=== PATIENT | male | born 1940 | race Caucasian/White ===

== ENCOUNTER 2020-12-09 12:22 | Outpatient (CLI) | payer OTHER | END 2020-12-09 12:23 | disposition home or self-care (01) | LOC: CSHULT 12:22 | PROVIDERS: ATTEND Orthopaedic Surgery | DX: I11.9 Hypertensive heart disease without heart failure (principal); Z95.0 Presence of cardiac pacemaker; I51.7 Cardiomegaly; I07.1 Rheumatic tricuspid insufficiency | CPT/HCPCS: 93306 ==

== ENCOUNTER 2024-07-06 08:16 | Emergency (ER) | payer MEDICARE, OTHER ==
[2024-07-06 09:44] LABS: #Basophils 0.02 10x3/uL (0.0-0.2); #Eosinophils 0.11 10x3/uL (0.0-0.5); #Neutrophils 4.55 10x3/uL (1.5-8.4); %Basophils 0.3 % (0.0-2.0); %Eosinophils 1.7 % (0.0-6.0); %Lymphocytes 16.6 % (18.0-47.0); %Monocytes 10.8 % (0.0-10.0); %Neutrophils 70.1 % (40.0-75.0); Hematocrit 36.3 % (38.8-50.0); Hemoglobin 11.5 g/dL (13.5-17.5); Mean Corpuscular HGB CONC 31.7 g/dL (32.0-36.0); Mean Corpuscular Hemoglobin 27.6 pg (27.0-33.0); Mean Corpuscular Volume 87.3 fL (81.2-95.1); Mean Platelet Volume 9.6 fL (7.4-10.4); Platelet Count 191 10x3/uL (150-450); Red Blood Cell (RBC) Count 4.16 10x6/uL (4.32-5.72); White Blood Cell (WBC) Count 6.5 10x3/uL (3.5-10.5)
[2024-07-06 09:55] LABS: INR-International Normal Ratio 1.2; PTT 33.1 sec (22.0-33.0)
[2024-07-06] MEDS ORDERED: Furosemide 40 MG (4 mL) VIAL ONE (09:57)
[2024-07-06] MEDS ORDERED: Ipratropium/Albuterol 3 ML NEB ONE (10:07)
[2024-07-06 10:17] LABS: Troponin I Less than 0.010 ng/mL (< 0.028)
[2024-07-06 10:21] LABS: ALT (SGPT) 12 U/L (8-55); AST (SGOT) 18 U/L (5-34); Albumin 3.8 g/dL (3.4-4.8); Alkaline Phosphatase 57 U/L (40-110); Anion Gap 16 mmol/L (10-20); BUN (Urea Nitrogen) 21 mg/dL (8.4-25.7); Bilirubin, Total 1.2 mg/dL (0.2-1.2); Calc. Creatinine Clearance 0 mL/min (70-130); Calcium 9.3 mg/dL (7.8-10.44); Carbon Dioxide 20 mmol/L (23-31); Chloride 106 mmol/L (98-107); Estimated GFR 61; Globulin 3.1 g/dL (2.4-3.5); Glucose 97 mg/dL (83-110); Lipase 5 U/L (8-78); Magnesium 1.8 mg/dL (1.6-2.6); Potassium 4.5 mmol/L (3.5-5.1); Protein, Total 6.9 g/dL (5.8-8.1); Sodium 137 mmol/L (136-145)
[2024-07-06] MEDS ORDERED: Iopamidol 370 76% 100 ML VIAL ONE (12:31)
== END 2024-07-06 14:06 | disposition short-term general hospital (02) ==
LOC: CSHERS 08:16
DX: I50.9 Heart failure, unspecified (principal); Z95.0 Presence of cardiac pacemaker; Z55.6 Problems related to health literacy
CPT/HCPCS: 71045; 74174; 80053; 83690; 83735; 83880; 84443; 84484; 85025; 85610; 85730; 87428; 93005; J1940; J7620